=== PATIENT | female | born 1990 | race African-American/Black ===

== ENCOUNTER 2016-10-15 09:28 | Emergency (ER) | payer MEDICAID, OTHER ==
[~2016-10-15] VITALS: Ht 154.9 cm; Wt 86.0 kg
[2016-10-15 11:05] VITALS: BP 131/84
== END 2016-10-15 17:01 | disposition left against medical advice (07) ==
LOC: ER 11:39
DX: R11.2 Nausea with vomiting, unspecified (principal); Z53.21 Procedure and treatment not carried out due to patient leaving prior to being seen by health care provider

== ENCOUNTER 2017-08-04 10:33 | Emergency (ER) | payer MEDICAID, OTHER ==
[~2017-08-04] VITALS: Ht 154.9 cm; Wt 85.0 kg
[2017-08-04] MEDS ORDERED: SODIUM CHLORIDE 0.9% 1,000 ML IV ONE (15:07)
[2017-08-04] MEDS ORDERED: FAMOTIDINE 20MG/2ML VIAL IV STA (15:07)
[2017-08-04] MEDS ORDERED: ONDANSETRON HCL 4MG/2ML VIAL IV STA (15:07)
[2017-08-04 15:27] LABS: EOSINOPHILS % 0.6 % (0.0-5.0); HEMATOCRIT. 39.1 % (36.0-48.0); HEMOGLOBIN. 13.1 g/dL (12.0-16.0); MEAN CORPUSCULAR VOLUME 89.4 fL (81.0-99.0); MEAN PLATELET VOLUME 7.6 fl (7.4-10.4); MONOCYTES % 8.3 % (2.0-8.0); NEUTROPHILS % 59.1 % (40.0-76.0); PLATELET 215 x1000/uL (130-400); RED BLOOD CELL COUNT 4.37 mill/uL (4.2-5.4); RED CELL DISTRIBUTION WIDTH 14.9 % (11.6-14.6)
[2017-08-04 15:30] LABS: CHLORIDE 94 mEq/L (98-107)
[2017-08-04 15:37] LABS: PROTHROMBIN TIME 10.7 sec (9.4-11.6)
[2017-08-04 16:00] VITALS: BP 119/58
[2017-08-04] MEDS ORDERED: KETOROLAC 30MG/ML VIAL IV ONE (16:00)
[2017-08-04 16:09] LABS: CLARITY URINE CLOUDY (CLEAR); COLOR URINE DARK YELLOW (YELLOW); KETONES URINE TRACE (NEGATIVE); LEUKOCYTE ESTERASE URINE NEGATIVE (NEGATIVE); NITRITE URINE NEGATIVE (NEGATIVE); OCCULT BLOOD URINE NEGATIVE (NEGATIVE); PROTEIN URINE 1+ (NEGATIVE); SPECIFIC GRAVITY URINE 1.034 (1.005-1.030)
[2017-08-04 16:21] LABS: *AMPHETAMINES SCREEN URINE NEGATIVE (NEGATIVE); *BARBITURATES SCREEN URINE NEGATIVE (NEGATIVE); *BENZODIAZEPINES SCREEN URINE NEGATIVE (NEGATIVE); *COCAINE SCREEN URINE NEGATIVE (NEGATIVE); CANNABINOID URINE SCREEN NEGATIVE (NEGATIVE); METHADONE URINE SCREEN NEGATIVE (NEGATIVE); OPIATES URINE SCREEN NEGATIVE (NEGATIVE); PHENCYCLIDINE URINE SCREEN NEGATIVE (NEGATIVE)
[2017-08-04] MEDS ORDERED: LORAZEPAM 0.5MG TABLET PO ONE (18:30)
== END 2017-08-04 19:25 | disposition home or self-care (01) ==
LOC: ER 11:57
DX: R74.8 Abnormal levels of other serum enzymes (principal); R10.10 Upper abdominal pain, unspecified; R11.2 Nausea with vomiting, unspecified; R42 Dizziness and giddiness; M79.1 Myalgia
CPT/HCPCS: 36415; 80053; 80305; 81001; 81025; 83690; 85025; 85610; 87070; 87430; 96361; 96374; 96375; 99285; J1885; J2405; J3490; J7030

== ENCOUNTER 2022-06-29 23:23 | Emergency (ER) | payer MEDICAID ==
[~2022-06-29] VITALS: Ht 154.9 cm; Wt 88.9 kg
[2022-06-30 00:26] LABS: CLARITY URINE CLEAR (CLEAR); COLOR URINE YELLOW (YELLOW); KETONES URINE TRACE (NEGATIVE); LEUKOCYTE ESTERASE URINE NEGATIVE (NEGATIVE); NITRITE URINE NEGATIVE (NEGATIVE); OCCULT BLOOD URINE NEGATIVE (NEGATIVE); PROTEIN URINE NEGATIVE (NEGATIVE); SPECIFIC GRAVITY URINE 1.024 (1.005-1.030); UROBILINOGEN URINE 0.2 E.U./dL (0.2-1.0)
[2022-06-30] MEDS ORDERED: ONDANSETRON 4MG ODT PO STA (02:18)
[2022-06-30] MEDS ORDERED: KETOROLAC 60MG/2ML VIAL IM STA (02:18)
[2022-06-30 02:43] LABS: BASOPHILS % 0.4 % (0.0-2.0); EOSINOPHILS % 1.8 % (0.0-5.0); HEMATOCRIT. 33.4 % (36.0-48.0); HEMOGLOBIN. 10.6 g/dL (12.0-16.0); LYMPHOCYTES % 41.9 % (20.0-50.0); MONOCYTES % 8.4 % (2.0-8.0); NEUTROPHILS % 47.5 % (40.0-76.0); PLATELET 252 x1000/uL (130-400); RED BLOOD CELL COUNT 3.93 mill/uL (4.2-5.4); RED CELL DISTRIBUTION WIDTH 17.7 % (11.6-14.6)
[2022-06-30 02:49] LABS: PROTHROMBIN TIME 10.3 sec (9.6-11.0)
[2022-06-30 03:28] LABS: CHLORIDE 109 mEq/L (98-107)
[2022-06-30 03:32] VITALS: BP 142/85
[2022-06-30 03:35] LABS: ETHANOL BLOOD < 10 mg/dL
[2022-06-30 03:38] LABS: HCG SCREEN NEGATIVE
[2022-06-30] MEDS ORDERED: ONDA4TAB50 MT (05:32)
[2022-06-30] MEDS ORDERED: FAMO-135 MT (05:32)
[2022-06-30] MEDS ORDERED: ACET-2708 MT (05:32)
== END 2022-06-30 07:58 | disposition home or self-care (01) ==
LOC: ER 23:23
DX: S82.831A Other fracture of upper and lower end of right fibula, initial encounter for closed fracture (principal); W50.2XXA Accidental twist by another person, initial encounter; Y93.89 Activity, other specified; Y92.89 Other specified places as the place of occurrence of the external cause; Y99.8 Other external cause status; Z98.890 Other specified postprocedural states; Z79.899 Other long term (current) drug therapy
CPT/HCPCS: 36415; 73610; 80053; 80320; 81003; 81025; 83605; 83690; 84703; 85025; 85610; 96372; 99284; J1885; Q0162; Z7610; G0480

== ENCOUNTER 2022-09-14 23:57 | Emergency (ER) | payer MEDICAID ==
[~2022-09-14] VITALS: Ht 154.9 cm; Wt 85.0 kg
[~2022-09-14 23:57] MED LIST: ACET-2708 MT; FAMO-135 MT; ONDA4TAB50 MT
[2022-09-15] MEDS ORDERED: ONDANSETRON 4MG ODT PO ONE (02:00)
[2022-09-15] MEDS ORDERED: ACETAMINOPHEN 325MG TABLET PO ONE (02:00)
[2022-09-15] MEDS ORDERED: ONDA4TAB50 MT (03:25)
[2022-09-15] MEDS ORDERED: IBUP-2029 MT (03:25)
[2022-09-15] MEDS ORDERED: FAMO20TA8 MT (03:25)
[2022-09-15 04:00] VITALS: BP 127/90
[2022-09-15] MEDS ORDERED: FAMOTIDINE 20MG TABLET PO ONE (04:00)
[2022-09-15] MEDS ORDERED: KETOROLAC 30MG/ML VIAL IM ONE (04:00)
== END 2022-09-15 03:48 | disposition home or self-care (01) ==
LOC: ER 23:58
DX: R11.2 Nausea with vomiting, unspecified (principal); K21.9 Gastro-esophageal reflux disease without esophagitis; Z98.890 Other specified postprocedural states; Z79.899 Other long term (current) drug therapy
CPT/HCPCS: 73130; 81025; 96372; 99284; J1885; Q0162; Z7610

== ENCOUNTER 2025-01-17 07:44 | Emergency (ER) | payer MEDICAID ==
[~2025-01-17] VITALS: Ht 167.6 cm; Wt 78.0 kg
[~2025-01-17 07:44] MED LIST changes: +FAMO20TA8 MT; +IBUP-2029 MT
[2025-01-17 07:46] VITALS: O2SAT 99
[2025-01-17 08:42] LABS: BASOPHILS % 0.2 % (0.0-2.0); EOSINOPHILS % 1.1 % (0.0-5.0); HEMATOCRIT. 37.3 % (36.0-48.0); HEMOGLOBIN. 12.0 g/dL (12.0-16.0); LYMPHOCYTES % 28.3 % (20.0-50.0); MEAN PLATELET VOLUME 8.9 fl (7.4-10.4); MONOCYTES % 5.2 % (2.0-8.0); NEUTROPHILS % 65.2 % (40.0-76.0); PLATELET 162 x1000/uL (130-400); RED BLOOD CELL COUNT 4.24 mill/uL (4.2-5.4); RED CELL DISTRIBUTION WIDTH 17.7 % (11.6-14.6)
[2025-01-17 08:55] LABS: CREATININE 0.8 mg/dL (0.6-1.0)
[2025-01-17 08:56] LABS: ETHANOL BLOOD 239 mg/dL (<10); HCG SCREEN NEGATIVE; UREA NITROGEN BLOOD 7 mg/dL (9-23)
[2025-01-17 08:57] LABS: ASPARTATE AMINOTRANSFERASE 206 IU/L (<34)
[2025-01-17 08:58] LABS: BILIRUBIN DIRECT 0.2 mg/dL (<=3.0); BILIRUBIN TOTAL 0.5 mg/dL (0.1-1.0); PROTEIN TOTAL 7.2 g/dL (6.0-8.3)
[2025-01-17] MEDS: FAMOTIDINE 20MG/2ML VIAL IV ONE (09:04)
[2025-01-17] MEDS: ONDANSETRON HCL 4MG/2ML INJ IV ONE (09:04)
[2025-01-17] MEDS: SODIUM CHLORIDE 0.9% 1,000 ML IV ONE (09:05)
[2025-01-17] MEDS: MORPHINE SULFATE 4 MG/ML INJ (FOR IV/IM USE) IV ONE (09:05)
[2025-01-17 09:28] LABS: CLARITY URINE CLEAR (CLEAR); COLOR URINE YELLOW (YELLOW); GLUCOSE URINE NEGATIVE (NEGATIVE); KETONES URINE NEGATIVE (NEGATIVE); LEUKOCYTE ESTERASE URINE NEGATIVE (NEGATIVE); NITRITE URINE NEGATIVE (NEGATIVE); OCCULT BLOOD URINE NEGATIVE (NEGATIVE); PH URINE >=9.0 (4.5-8.0); PROTEIN URINE NEGATIVE (NEGATIVE); SPECIFIC GRAVITY URINE 1.014 (1.005-1.030); UROBILINOGEN URINE 0.2 E.U./dL (0.2-1.0)
[2025-01-17] MEDS ORDERED: ONDA-239 PO (09:49)
[2025-01-17] MEDS ORDERED: PROT40 MT (09:49)
[2025-01-17] MEDS: METOCLOPRAMIDE HCL 10MG/2ML VIAL IV ONE (10:09)
[2025-01-17 10:20] LABS: *AMPHETAMINES SCREEN URINE NEGATIVE (NEGATIVE)
[2025-01-17 10:21] VITALS: BP 118/74; PULSE 84; RESP 14; TEMP 37.2; O2SAT 100
[2025-01-17 10:21] LABS: *BARBITURATES SCREEN URINE NEGATIVE (NEGATIVE); *BENZODIAZEPINES SCREEN URINE NEGATIVE (NEGATIVE); *COCAINE SCREEN URINE NEGATIVE (NEGATIVE); CANNABINOID URINE SCREEN NEGATIVE (NEGATIVE); ECSTASY MDMA SCREEN URINE NEGATIVE (NEGATIVE); METHADONE URINE SCREEN NEGATIVE (NEGATIVE); OPIATES URINE SCREEN PRESUMPTIVE POSITIVE (NEGATIVE); PHENCYCLIDINE URINE SCREEN NEGATIVE (NEGATIVE)
[2025-01-17] MEDS: KETOROLAC 15MG/ML VIAL IV ONE (10:21)
== END 2025-01-17 10:27 | disposition home or self-care (01) ==
LOC: ER 07:44
DX: K29.70 Gastritis, unspecified, without bleeding (principal); F10.129 Alcohol abuse with intoxication, unspecified; Z79.899 Other long term (current) drug therapy; Z98.890 Other specified postprocedural states; Y90.7 Blood alcohol level of 200-239 mg/100 ml
CPT/HCPCS: 80076; 80305; 80048; 81003; 81025; 80320; 84703; 83690; 85025; 36415; 76705; 96361; 96374; 96375; 99285; J1308; J1885; J2765; J2405; J2270; J7030; Z7610 ×3; G0480